=== PATIENT | male | born 1990 | race Caucasian/White ===

== ENCOUNTER 2019-04-16 08:17 | Emergency (ER) | payer OTHER ==
[~2019-04-16] VITALS: Ht 177.8 cm; Wt 72.6 kg
[2019-04-16] MEDS ORDERED: ULTRAM 50MG TAB50 MG PO ×2 (08:27→08:33)
[2019-04-16] MEDS ORDERED: TYLENOL EXTRA500 MG PO (08:27)
[2019-04-16] MEDS ORDERED: AMOXICILLIN 50500 MG PO ×2 (08:27→08:33)
[2019-04-16] MEDS ORDERED: IBUPROFEN 800800 M1 PO (08:28)
[2019-04-16 08:37] VITALS: BP 127/80
== END 2019-04-16 08:38 | disposition home or self-care (01) ==
LOC: M.ERS 08:17
DX: K02.9 Dental caries, unspecified (principal); F17.210 Nicotine dependence, cigarettes, uncomplicated

== ENCOUNTER 2019-06-10 09:17 | Emergency (ER) | payer OTHER ==
[~2019-06-10] VITALS: Ht 180.3 cm; Wt 72.6 kg
[~2019-06-10 09:17] MED LIST: AMOXICILLIN 50500 MG PO; IBUPROFEN 800800 M1 PO; TYLENOL EXTRA500 MG PO; ULTRAM 50MG TAB50 MG PO
[2019-06-10 10:05] VITALS: BP 103/67
== END 2019-06-10 10:06 | disposition home or self-care (01) ==
LOC: M.ERS 09:17
DX: K04.7 Periapical abscess without sinus (principal)

== ENCOUNTER 2019-12-08 14:27 | Emergency (ER) | payer OTHER | END 2019-12-08 15:16 | disposition left against medical advice (07) | LOC: M.ERS 14:27 | DX: K08.89 Other specified disorders of teeth and supporting structures (principal); Z53.21 Procedure and treatment not carried out due to patient leaving prior to being seen by health care provider ==

== ENCOUNTER 2021-04-24 07:58 | Emergency (ER) | payer OTHER ==
[~2021-04-24] VITALS: Ht 177.8 cm; Wt 68.0 kg
[2021-04-24] MEDS ORDERED: HYDROCODON-ACE1 EAC7 PO (09:01)
[2021-04-24] MEDS ORDERED: FLEXERIL PO (09:01)
[2021-04-24 09:07] VITALS: BP 122/68
== END 2021-04-24 09:08 | disposition home or self-care (01) ==
LOC: M.ERS 07:58
DX: S46.912A Strain of unspecified muscle, fascia and tendon at shoulder and upper arm level, left arm, initial encounter (principal); X50.9XXA Other and unspecified overexertion or strenuous movements or postures, initial encounter; Y93.89 Activity, other specified; Y92.89 Other specified places as the place of occurrence of the external cause; Y99.8 Other external cause status